=== PATIENT | male | born 1985 | race Caucasian/White ===

== ENCOUNTER 2017-08-19 20:24 | Emergency (ER) | payer OTHER ==
[2017-08-19] MEDS: PANTOPRAZOLE IV 80 MG in SOD CHLORIDE 0.9% 100 ML IVPB (21:19)
[2017-08-19 22:06] LABS: ADD MAN DIFF? NO
[2017-08-19 22:09] LABS: BASOPHIL # 0.1 10^3/ul (0.0-0.1); BASOPHILS % 0.7 % (0.0-2.0); EOSINOPHILS # 0.1 10^3/ul (0.0-0.5); EOSINOPHILS % 1.2 % (0.0-7.0); HEMATOCRIT 41.1 % (42.0-52.0); LYMPHOCYTES # 2.8 10^3/ul (0.8-2.9); LYMPHOCYTES % 30.3 % (15.0-51.0); MEAN CORPUSCULAR HEMOGLOBIN 27.8 pg (29.0-33.0); MEAN CORPUSCULAR HGB CONC 34.1 g/dl (32.0-37.0); MEAN CORPUSCULAR VOLUME 81.5 fl (82.0-101.0); MEAN PLATELET VOLUME 9.1 fl (7.4-10.4); MONOCYTE # 0.4 10^3/ul (0.3-0.9); MONOCYTES % 4.3 % (0.0-11.0); NEUTROPHIL # 5.8 10^3/ul (1.6-7.5); NEUTROPHILS % 63.2 % (39.0-77.0); PLATELET COUNT 276 10^3/UL (140-415); RED BLOOD COUNT 5.04 10^6/ul (4.70-6.10); RED CELL DISTRIBUTION WIDTH 14.1 % (11.5-14.5)
[2017-08-19 22:09] LABS: WHITE BLOOD COUNT 9.2 10^3/ul (4.8-10.8)
[2017-08-19] MEDS: SOD CHLORIDE 0.9% 1,000 ML IV (22:09)
[2017-08-19 22:24] LABS: INR 1.01; PROTIME 13.4 Sec (11.9-14.9)
[2017-08-19 22:25] LABS: PARTIAL THROMBOPLASTIN TIME 29.2 Sec (25.0-35.0)
[2017-08-19] MEDS: METOCLOPRAMIDE 10 MG INJ IV (22:25)
[2017-08-19] MEDS: morphine 10 MG INJ IV (22:25)
[2017-08-19 22:26] LABS: ALANINE AMINOTRANSFERASE 22 IU/L (13-69); ALBUMIN 4.5 g/dl (3.3-4.9); ALBUMIN/GLOBULIN RATIO 1.28; ALKALINE PHOSPHATASE 94 IU/L (42-121); ANION GAP 17 (8-16); ASPARTATE AMINO TRANSFERASE 13 IU/L (15-46); BILIRUBIN,INDIRECT 0.4 mg/dl (0-1.1); BILIRUBIN,TOTAL 0.4 mg/dl (0.2-1.3); BLOOD UREA NITROGEN 11 mg/dl (7-20); CALCIUM 9.4 mg/dl (8.4-10.2); CARBON DIOXIDE 22 mmol/L (21-31); CHLORIDE 105 mmol/L (97-110); CREATININE 0.77 mg/dl (0.61-1.24); GLUCOSE 94 mg/dl (70-220); POTASSIUM 3.6 mmol/L (3.5-5.1); SODIUM 140 mmol/L (135-144)
[2017-08-19] MEDS ORDERED: FAMOTIDINE 20 MG TAB PO (23:00)
[2017-08-19 23:18] LABS: LIPASE 82 U/L (23-300)
[2017-08-19] MEDS: FAMOTIDINE 20 MG INJ IV (23:29)
[2017-08-19] MEDS: HYDROmorphONE 0.5 MG/0.5 ML SYG IV (23:29)
[2017-08-19] MEDS: LIDOCAINE/MYLANTA 40 ML BTL PO (23:29)
== END 2017-08-19 23:54 | disposition home or self-care (01) ==
LOC: E/R 23:54
DX: K92.2 Gastrointestinal hemorrhage, unspecified (principal); F17.210 Nicotine dependence, cigarettes, uncomplicated
CPT/HCPCS: 36415; 80053; 83690; 85025; 85610; 85730; 86850; 86900; 86901; 93005; 96374; 96375; 99284-25

== ENCOUNTER 2017-08-20 17:04 | Observation (INO) | payer OTHER ==
[2017-08-20] MEDS: FAMOTIDINE 20 MG INJ IV (21:27)
[2017-08-20] MEDS: SOD CHLORIDE 0.9% 1,000 ML IV ×2 (21:27→22:30)
[2017-08-20] MEDS: ONDANSETRON 4 MG INJ IV ×3 (21:27→22:52)
[2017-08-20 21:33] LABS: ADD MAN DIFF? NO
[2017-08-20 21:35] LABS: BASOPHIL # 0.1 10^3/ul (0.0-0.1); BASOPHILS % 1.2 % (0.0-2.0); EOSINOPHILS # 0.1 10^3/ul (0.0-0.5); EOSINOPHILS % 1.7 % (0.0-7.0); HEMATOCRIT 41.2 % (42.0-52.0); HEMOGLOBIN 13.9 g/dl (14.0-18.0); LYMPHOCYTES # 2.9 10^3/ul (0.8-2.9); MEAN CORPUSCULAR HGB CONC 33.7 g/dl (32.0-37.0); MEAN CORPUSCULAR VOLUME 83.1 fl (82.0-101.0); MEAN PLATELET VOLUME 9.4 fl (7.4-10.4); MONOCYTE # 0.5 10^3/ul (0.3-0.9); MONOCYTES % 7.1 % (0.0-11.0); NEUTROPHIL # 3.8 10^3/ul (1.6-7.5); NEUTROPHILS % 50.7 % (39.0-77.0); PLATELET COUNT 297 10^3/UL (140-415); RED BLOOD COUNT 4.96 10^6/ul (4.70-6.10); RED CELL DISTRIBUTION WIDTH 14.4 % (11.5-14.5)
[2017-08-20 21:35] LABS: WHITE BLOOD COUNT 7.5 10^3/ul (4.8-10.8)
[2017-08-20 21:38] LABS: ADD UMIC NO; UR ASCORBIC ACID 40 mg/dL (NEGATIVE); UR BILIRUBIN (Dip) NEGATIVE (NEGATIVE); UR BLOOD (Dip) NEGATIVE (NEGATIVE); UR CLARITY CLEAR (CLEAR); UR COLOR YELLOW (YELLOW); UR GLUCOSE (Dip) NEGATIVE (NEGATIVE); UR KETONES (Dip) NEGATIVE (NEGATIVE); UR LEUKOCYTE ESTERASE (Dip) NEGATIVE Leu/ul (NEGATIVE); UR NITRITE (Dip) NEGATIVE (NEGATIVE); UR SPECIFIC GRAVITY (Dip) 1.014 (1.003-1.030); UR TOTAL PROTEIN (Dip) NEGATIVE (NEGATIVE); UR UROBILINOGEN (Dip) NEGATIVE (NEGATIVE)
[2017-08-20 21:56] LABS: ALANINE AMINOTRANSFERASE 26 IU/L (13-69); ALBUMIN 4.3 g/dl (3.3-4.9); ALBUMIN/GLOBULIN RATIO 1.26; ALKALINE PHOSPHATASE 84 IU/L (42-121); ANION GAP 21 (8-16); ASPARTATE AMINO TRANSFERASE 13 IU/L (15-46); BLOOD UREA NITROGEN 13 mg/dl (7-20); CALCIUM 9.6 mg/dl (8.4-10.2); CARBON DIOXIDE 23 mmol/L (21-31); CHLORIDE 102 mmol/L (97-110); GLUCOSE 84 mg/dl (70-220); LIPASE 127 U/L (23-300); POTASSIUM 3.9 mmol/L (3.5-5.1); SODIUM 142 mmol/L (135-144); TOTAL PROTEIN 7.7 g/dl (6.1-8.1)
[2017-08-20] MEDS: morphine 4 MG/ML VIAL IV (22:10)
[2017-08-20] MEDS: HYDROmorphONE 0.5 MG/0.5 ML SYG IV (22:30)
[2017-08-20 22:34] LABS: INR 0.96; PROTIME 12.9 Sec (11.9-14.9)
[2017-08-20 22:35] LABS: PARTIAL THROMBOPLASTIN TIME 29.8 Sec (25.0-35.0)
[2017-08-20] MEDS: PANTOPRAZOLE IV 80 MG in SOD CHLORIDE 0.9% 100 ML IVPB (22:50)
[2017-08-20] MEDS: PANTOPRAZOLE IV 80 MG in SOD CHLORIDE 0.9% 100 ML IV (22:52)
[2017-08-21] MEDS: HYDROmorphONE 0.5 MG/0.5 ML SYG IV ×5 (00:02→23:04)
[2017-08-21] MEDS: ONDANSETRON 4 MG INJ IV ×2 (00:02→02:38)
[2017-08-21] MEDS ORDERED: ACETAMINOPHEN 325 MG TAB PO ×2 (01:30→02:00)
[2017-08-21] MEDS ORDERED: SOD CHLORIDE 0.9% 1,000 ML IV (01:30)
[2017-08-21] MEDS: SOD CHLORIDE 0.9% 1,000 ML IV ×2 (01:54→11:54)
[2017-08-21] MEDS ORDERED: NITROGLYCERIN (SL) 0.4 MG TAB SL (02:00)
[2017-08-21] MEDS ORDERED: NA PHOSPHATE/BIPHOS 133 ML ENEMA PR (02:00)
[2017-08-21] MEDS ORDERED: METOCLOPRAMIDE 10 MG TAB PO (02:00)
[2017-08-21] MEDS ORDERED: ALBUTEROL/IPRATROPIUM (NEB) 3 ML AMP HHN (02:00)
[2017-08-21] MEDS ORDERED: MAGNESIUM HYDROXIDE 30ML CUP PO (02:00)
[2017-08-21] MEDS ORDERED: NACL 0.9% 3 ML SYG IV (02:00)
[2017-08-21] MEDS ORDERED: ONDANSETRON 4 MG INJ IV (02:00)
[2017-08-21] MEDS ORDERED: hydrALAzine 20 MG INJ IV (02:00)
[2017-08-21] MEDS: PANTOPRAZOLE IV 80 MG in SOD CHLORIDE 0.9% 100 ML IV ×2 (02:00→11:42)
[2017-08-21] MEDS ORDERED: DOCUSATE SODIUM 100 MG CAP PO (02:00)
[2017-08-21] MEDS: morphine 2 MG INJ IV ×4 (02:38→15:24)
[2017-08-21] MEDS: LORAZEPAM 2 MG INJ IV ×4 (03:31→20:04)
[2017-08-21 06:33] LABS: FREE T4 (FREE THYROXINE) 1.47 ng/dl (0.79-2.35)
[2017-08-21] MEDS: HYDROCODONE/APAP (5/325) TAB PO ×2 (07:50→14:16)
[2017-08-21 08:38] LABS: INR 0.99; PROTIME 13.2 Sec (11.9-14.9)
[2017-08-21 08:39] LABS: PARTIAL THROMBOPLASTIN TIME 29.9 Sec (25.0-35.0)
[2017-08-21 08:44] LABS: AMPHETAMINE/METHAMPHETAMINE Negative (NEGATIVE); BARBITURATES Negative (NEGATIVE); BENZODIAZEPINES Negative (NEGATIVE); CANNABINOIDS Negative (NEGATIVE); COCAINE Negative (NEGATIVE); OPIATES Positive (NEGATIVE)
[2017-08-21] MEDS ORDERED: HEPARIN 5,000 UNIT/0.5 ML VIAL SC (09:00)
[2017-08-21] MEDS: IOHEXOL 14.3 MG(I)/ML (ADULT) BTL PO (15:00)
[2017-08-21] MEDS: SOD CHLORIDE 0.9% 100 ML (17:10)
[2017-08-21] MEDS: IOHEXOL 300MG/ML 150 ML BTL (17:10)
[2017-08-21] MEDS: PANTOPRAZOLE 40 MG INJ IV (18:05)
[2017-08-21] MEDS: POTASSIUM CHLORIDE 10 MEQ in DEXTROSE 5%-0.9% NACL 1,000 ML IV (18:05)
[2017-08-22] MEDS: HYDROmorphONE 0.5 MG/0.5 ML SYG IV ×8 (04:27→23:34)
[2017-08-22] MEDS: PANTOPRAZOLE 40 MG INJ IV ×2 (06:06→19:23)
[2017-08-22] MEDS: POTASSIUM CHLORIDE 10 MEQ in DEXTROSE 5%-0.9% NACL 1,000 ML IV ×3 (07:13→21:30)
[2017-08-22] MEDS: LORAZEPAM 2 MG INJ IV (11:14)
[2017-08-22 16:05] LABS: ADD MAN DIFF? NO
[2017-08-22 16:08] LABS: BASOPHIL # 0.1 10^3/ul (0.0-0.1); BASOPHILS % 0.7 % (0.0-2.0); EOSINOPHILS # 0.1 10^3/ul (0.0-0.5); EOSINOPHILS % 1.4 % (0.0-7.0); HEMATOCRIT 42.1 % (42.0-52.0); HEMOGLOBIN 14.3 g/dl (14.0-18.0); LYMPHOCYTES # 2.2 10^3/ul (0.8-2.9); LYMPHOCYTES % 31.8 % (15.0-51.0); MEAN CORPUSCULAR HEMOGLOBIN 28.1 pg (29.0-33.0); MEAN CORPUSCULAR VOLUME 82.9 fl (82.0-101.0); MEAN PLATELET VOLUME 9.3 fl (7.4-10.4); MONOCYTE # 0.3 10^3/ul (0.3-0.9); MONOCYTES % 4.5 % (0.0-11.0); NEUTROPHIL # 4.3 10^3/ul (1.6-7.5); NEUTROPHILS % 61.3 % (39.0-77.0); PLATELET COUNT 281 10^3/UL (140-415); RED BLOOD COUNT 5.08 10^6/ul (4.70-6.10); RED CELL DISTRIBUTION WIDTH 14.3 % (11.5-14.5)
[2017-08-22 16:08] LABS: WHITE BLOOD COUNT 6.9 10^3/ul (4.8-10.8)
[2017-08-22 16:40] LABS: ANION GAP 17 (8-16); BLOOD UREA NITROGEN 6 mg/dl (7-20); CALCIUM 9.5 mg/dl (8.4-10.2); CARBON DIOXIDE 25 mmol/L (21-31); CHLORIDE 104 mmol/L (97-110); CHOL/HDL RATIO 2.9 RATIO; CHOLESTEROL 175 mg/dl (100-200); GLUCOSE 85 mg/dl (70-220); HDL CHOLESTEROL 60 mg/dl (28-63); LDL CHOLESTEROL,CALCULATED 98 mg/dl; POTASSIUM 3.8 mmol/L (3.5-5.1); SODIUM 142 mmol/L (135-144); TRIGLYCERIDES 85 mg/dl (0-149)
[2017-08-22 16:45] LABS: PHOSPHORUS 3.9 mg/dl (2.5-4.9)
[2017-08-22] MEDS ORDERED: ZOLPIDEM 5 MG TAB PO (17:00)
[2017-08-22 17:04] LABS: FREE T4 (FREE THYROXINE) 1.74 ng/dl (0.79-2.35)
[2017-08-22] MEDS: LIDOCAINE 2% (SDV) 5 ML INJ (17:42)
[2017-08-22] MEDS: PROPOFOL 40 ML (17:42)
[2017-08-22] MEDS ORDERED: MIDAZOLAM 1 MG/ML 2 ML INJ (18:15)
[2017-08-22] MEDS ORDERED: FENTAnyl 50 MCG/ML VIAL (18:25)
[2017-08-22] MEDS: MIDAZOLAM 1 MG/ML 2 ML INJ IV (18:40)
[2017-08-22] MEDS: FENTAnyl 50 MCG/ML VIAL IV (18:41)
[2017-08-22 18:57] LABS: HEMOGLOBIN A1C 4.9 % (0-5.9)
[2017-08-22] MEDS ORDERED: ONDANSETRON 4 MG INJ IV (19:00)
[2017-08-22] MEDS: NICOTINE (21 MG/24 HR) PATCH TRANSDERM (19:30)
[2017-08-22] MEDS: LORAZEPAM 0.5 MG TAB PO (20:12)
[2017-08-22] MEDS: ZOLPIDEM 5 MG TAB PO (22:29)
[2017-08-23] MEDS: ZOLPIDEM 5 MG TAB PO (01:22)
[2017-08-23] MEDS: HYDROmorphONE 0.5 MG/0.5 ML SYG IV ×7 (01:39→14:52)
[2017-08-23] MEDS: PANTOPRAZOLE 40 MG INJ IV (05:44)
[2017-08-23] MEDS: LORAZEPAM 0.5 MG TAB PO (07:50)
[2017-08-23] MEDS: POTASSIUM CHLORIDE 10 MEQ in DEXTROSE 5%-0.9% NACL 1,000 ML IV (08:46)
[2017-08-23] MEDS: HYDROCODONE/APAP (5/325) TAB PO (09:08)
[2017-08-23] MEDS: NICOTINE (21 MG/24 HR) PATCH TRANSDERM (09:09)
== END 2017-08-23 15:04 | disposition home or self-care (01) ==
LOC: MS3 08-21 01:31 → MS4 08-23 01:18 → E/R 17:04
DX: K92.2 Gastrointestinal hemorrhage, unspecified (principal); K29.70 Gastritis, unspecified, without bleeding; K44.9 Diaphragmatic hernia without obstruction or gangrene; K21.9 Gastro-esophageal reflux disease without esophagitis; F41.9 Anxiety disorder, unspecified; F17.210 Nicotine dependence, cigarettes, uncomplicated; G47.00 Insomnia, unspecified; E66.01 Morbid (severe) obesity due to excess calories; Z68.33 Body mass index [BMI] 33.0-33.9, adult
CPT/HCPCS: 36415; 71045; 74177; 80048; 80053; 80061; 80307; 81003; 83036; 83690; 83735; 84100; 84439; 84443; 85025; 85610; 85730; 88305; 88312; 96374; 96375; 96376; 99217; 99284-25; G0378

== ENCOUNTER 2017-08-26 10:01 | Emergency (ER) | payer OTHER ==
[2017-08-26] MEDS: SOD CHLORIDE 0.9% 1,000 ML IV (11:47)
[2017-08-26] MEDS: ONDANSETRON 4 MG INJ IV (11:47)
[2017-08-26 12:00] LABS: ADD MAN DIFF? NO
[2017-08-26 12:06] LABS: WHITE BLOOD COUNT 6.5 10^3/ul (4.8-10.8)
[2017-08-26 12:06] LABS: BASOPHIL # 0.1 10^3/ul (0.0-0.1); BASOPHILS % 0.9 % (0.0-2.0); EOSINOPHILS % 0.5 % (0.0-7.0); HEMATOCRIT 45.3 % (42.0-52.0); HEMOGLOBIN 15.4 g/dl (14.0-18.0); LYMPHOCYTES % 30.2 % (15.0-51.0); MEAN CORPUSCULAR HEMOGLOBIN 27.9 pg (29.0-33.0); MEAN CORPUSCULAR VOLUME 82.1 fl (82.0-101.0); MEAN PLATELET VOLUME 9.7 fl (7.4-10.4); MONOCYTE # 0.3 10^3/ul (0.3-0.9); MONOCYTES % 4.7 % (0.0-11.0); NEUTROPHIL # 4.2 10^3/ul (1.6-7.5); NEUTROPHILS % 63.5 % (39.0-77.0); PLATELET COUNT 288 10^3/UL (140-415); RED BLOOD COUNT 5.52 10^6/ul (4.70-6.10); RED CELL DISTRIBUTION WIDTH 14.6 % (11.5-14.5)
[2017-08-26 12:21] LABS: ALANINE AMINOTRANSFERASE 12 IU/L (13-69); ALBUMIN 4.9 g/dl (3.3-4.9); ALBUMIN/GLOBULIN RATIO 1.25; ALKALINE PHOSPHATASE 100 IU/L (42-121); ANION GAP 21 (8-16); ASPARTATE AMINO TRANSFERASE 12 IU/L (15-46); BILIRUBIN,INDIRECT 0.5 mg/dl (0-1.1); BILIRUBIN,TOTAL 0.5 mg/dl (0.2-1.3); BLOOD UREA NITROGEN 11 mg/dl (7-20); CALCIUM 9.9 mg/dl (8.4-10.2); CARBON DIOXIDE 24 mmol/L (21-31); CHLORIDE 102 mmol/L (97-110); CREATININE 0.84 mg/dl (0.61-1.24); GLUCOSE 89 mg/dl (70-220); LIPASE 98 U/L (23-300); POTASSIUM 4.1 mmol/L (3.5-5.1); SODIUM 143 mmol/L (135-144); TOTAL PROTEIN 8.8 g/dl (6.1-8.1)
[2017-08-26 13:40] LABS: OCCULT BLOOD STOOL NEGATIVE (NEGATIVE)
[2017-08-26] MEDS: PANTOPRAZOLE 40 MG INJ IV (13:50)
[2017-08-26] MEDS: METOCLOPRAMIDE 10 MG INJ IV (13:50)
[2017-08-26] MEDS: HYDROmorphONE 2 MG/ML SYG IV (13:50)
[2017-08-26] MEDS ORDERED: FAMOTIDINE 20 MG INJ IV (14:00)
[2017-08-26] MEDS: LORAZEPAM 1 MG TAB PO (14:17)
== END 2017-08-26 14:26 | disposition home or self-care (01) ==
LOC: E/R 10:01
DX: R10.32 Left lower quadrant pain (principal); R40.2252 Coma scale, best verbal response, oriented, at arrival to emergency department; R11.2 Nausea with vomiting, unspecified; R03.0 Elevated blood-pressure reading, without diagnosis of hypertension; R40.2142 Coma scale, eyes open, spontaneous, at arrival to emergency department; R40.2362 Coma scale, best motor response, obeys commands, at arrival to emergency department; Z87.891 Personal history of nicotine dependence
CPT/HCPCS: 36415; 71045; 80053; 82270; 83690; 85025; 96374; 96375; 99284-25

== ENCOUNTER 2017-08-28 09:37 | Emergency (ER) | payer OTHER ==
[2017-08-28] MEDS: LORAZEPAM 1 MG TAB PO ×2 (10:35→18:07)
[2017-08-28] MEDS: ONDANSETRON (ODT) 4 MG TAB ODT (10:35)
[2017-08-28] MEDS: LIDOCAINE/MYLANTA 40 ML BTL PO (10:35)
[2017-08-28] MEDS: HALOPERIDOL 5 MG TAB PO (11:12)
[2017-08-28] MEDS: BENZTROPINE 1 MG TAB PO (11:12)
[2017-08-28 12:27] LABS: ADD MAN DIFF? NO
[2017-08-28 12:39] LABS: BASOPHIL # 0.1 10^3/ul (0.0-0.1); BASOPHILS % 0.8 % (0.0-2.0); EOSINOPHILS # 0.1 10^3/ul (0.0-0.5); EOSINOPHILS % 0.8 % (0.0-7.0); HEMATOCRIT 41.8 % (42.0-52.0); HEMOGLOBIN 13.9 g/dl (14.0-18.0); LYMPHOCYTES # 2.1 10^3/ul (0.8-2.9); LYMPHOCYTES % 34.4 % (15.0-51.0); MEAN CORPUSCULAR HEMOGLOBIN 28.1 pg (29.0-33.0); MEAN CORPUSCULAR HGB CONC 33.3 g/dl (32.0-37.0); MEAN CORPUSCULAR VOLUME 84.6 fl (82.0-101.0); MONOCYTE # 0.3 10^3/ul (0.3-0.9); MONOCYTES % 5.1 % (0.0-11.0); NEUTROPHIL # 3.7 10^3/ul (1.6-7.5); NEUTROPHILS % 58.7 % (39.0-77.0); PLATELET COUNT 225 10^3/UL (140-415); RED BLOOD COUNT 4.94 10^6/ul (4.70-6.10); RED CELL DISTRIBUTION WIDTH 14.7 % (11.5-14.5)
[2017-08-28 12:39] LABS: WHITE BLOOD COUNT 6.2 10^3/ul (4.8-10.8)
[2017-08-28 12:41] LABS: ADD UMIC NO; UR ASCORBIC ACID NEGATIVE (NEGATIVE); UR BILIRUBIN (Dip) NEGATIVE (NEGATIVE); UR BLOOD (Dip) NEGATIVE (NEGATIVE); UR CLARITY CLEAR (CLEAR); UR COLOR YELLOW (YELLOW); UR GLUCOSE (Dip) NEGATIVE (NEGATIVE); UR KETONES (Dip) NEGATIVE (NEGATIVE); UR LEUKOCYTE ESTERASE (Dip) NEGATIVE Leu/ul (NEGATIVE); UR NITRITE (Dip) NEGATIVE (NEGATIVE); UR SPECIFIC GRAVITY (Dip) 1.018 (1.003-1.030); UR TOTAL PROTEIN (Dip) NEGATIVE (NEGATIVE); UR UROBILINOGEN (Dip) NEGATIVE (NEGATIVE)
[2017-08-28 12:53] LABS: ALANINE AMINOTRANSFERASE 16 IU/L (13-69); ALBUMIN 4.4 g/dl (3.3-4.9); ALBUMIN/GLOBULIN RATIO 1.37; ALKALINE PHOSPHATASE 86 IU/L (42-121); ANION GAP 14 (8-16); ASPARTATE AMINO TRANSFERASE 10 IU/L (15-46); BILIRUBIN,INDIRECT 0.3 mg/dl (0-1.1); BILIRUBIN,TOTAL 0.3 mg/dl (0.2-1.3); BLOOD UREA NITROGEN 9 mg/dl (7-20); CALCIUM 9.7 mg/dl (8.4-10.2); CARBON DIOXIDE 29 mmol/L (21-31); CHLORIDE 104 mmol/L (97-110); CREATININE 0.89 mg/dl (0.61-1.24); GLUCOSE 98 mg/dl (70-220); POTASSIUM 4.3 mmol/L (3.5-5.1); SODIUM 143 mmol/L (135-144); TOTAL PROTEIN 7.6 g/dl (6.1-8.1)
[2017-08-28 12:55] LABS: ACETAMINOPHEN < 10.0 ug/ml (10.0-30.0); ETHANOL < 10.0 mg/dl; SALICYLATE < 1.0 mg/dl (5.0-30.0)
[2017-08-28 13:45] LABS: AMPHETAMINE/METHAMPHETAMINE Negative (NEGATIVE); BARBITURATES Negative (NEGATIVE); BENZODIAZEPINES Negative (NEGATIVE); CANNABINOIDS Negative (NEGATIVE); COCAINE Negative (NEGATIVE); OPIATES Negative (NEGATIVE)
[2017-08-28] MEDS: OLANZAPINE (ODT) 5 MG TAB ODT (14:28)
== END 2017-08-28 18:10 ==
LOC: E/R 09:37
DX: R10.84 Generalized abdominal pain (principal); R45.851 Suicidal ideations; R11.10 Vomiting, unspecified; F17.210 Nicotine dependence, cigarettes, uncomplicated
CPT/HCPCS: 36415; 80053; 80306; 80307; 81003; 85025; 99285-25